=== PATIENT | female | born 1935 | race Caucasian/White ===

== ENCOUNTER 2017-01-24 09:53 | Outpatient (CLI) | payer MEDICARE, OTHER ==
[2017-01-24 18:33] LABS: BASOPHILS % (AUTO) 0.6 %; EOSINOPHILS # (AUTO) 0.2 10^3/uL (0.0-0.7); EOSINOPHILS % (AUTO) 2.2 %; HCT - HEMATOCRIT 39.8 % (37.0-47.0); HGB - HEMOGLOBIN 13.1 g/dL (12.0-16.0); LYMPHOCYTES # (AUTO) 2.3 10^3/uL (1.5-3.5); LYMPHOCYTES % (AUTO) 29.8 %; MEAN CORPUSCULAR HEMOGLOBIN 30.8 pg (27.0-31.0); MEAN CORPUSCULAR VOLUME 93.4 fL (81.0-99.0); MEAN PLATELET VOLUME 8.6 fL (7.9-10.8); MONOCYTES # (AUTO) 0.6 10^3/uL (0.0-1.0); MONOCYTES % (AUTO) 8.1 %; NEUTROPHILS # (AUTO) 4.7 10^3/uL (1.5-6.6); NEUTROPHILS % (AUTO) 59.3 %; RED BLOOD COUNT 4.26 10^6/uL (4.20-5.40); RED CELL DISTRIBUTION WIDTH 14.6 % (12.0-15.0); UNCORRECTED WHITE BLOOD COUNT 7.9 x10^3/uL; WHITE BLOOD COUNT 7.9 x10^3/uL (4.8-10.8)
[2017-01-24 18:56] LABS: ALBUMIN/GLOBULIN RATIO 1.1 (1.0-2.2); BILIRUBIN,TOTAL 0.8 mg/dL (0.2-1.0); BUN - BLOOD UREA NITROGEN 19 mg/dL (6-20); CALCIUM 9.7 mg/dL (8.5-10.3); CARBON DIOXIDE - CO2 23 mmol/L (21-32); CHLORIDE 106 mmol/L (101-111); CHOL/HDL RATIO 4.7 (<4.4); CHOLESTEROL 261 mg/dL; CREATININE 0.8 mg/dL (0.4-1.0); GFR - MDRD 69 (>89); GLUCOSE 89 mg/dL (70-100); HDL CHOLESTEROL 56 mg/dL; LDL/HDL RATIO 3.4 (<4.4); POTASSIUM 3.6 mmol/L (3.5-5.0); SODIUM 138 mmol/L (135-145); TOTAL PROTEIN 7.7 g/dL (6.7-8.2); TRIGLYCERIDES 72 mg/dL; VLDL CHOLESTEROL 14 mg/dL
[2017-01-24 19:23] LABS: THYROID STIMULATING HORMONE < 0.08 uIU/mL (0.34-5.60)
== END 2017-01-24 09:54 | disposition home or self-care (01) ==
LOC: LAB.F 09:53
PROVIDERS: ATTEND Physician Assistant Medical
DX: I10 Essential (primary) hypertension (principal); E55.9 Vitamin D deficiency, unspecified; E78.5 Hyperlipidemia, unspecified; E03.9 Hypothyroidism, unspecified
CPT/HCPCS: 36415; 80053; 80061; 82306; 84439; 84443; 85025

== ENCOUNTER 2017-01-30 09:46 | Outpatient (CLI) | payer MEDICARE, OTHER ==
[2017-01-30 18:59] LABS: THYROID STIMULATING HORMONE < 0.08 uIU/mL (0.34-5.60)
== END 2017-01-30 09:47 | disposition home or self-care (01) ==
LOC: LAB.F 09:46
PROVIDERS: ATTEND Physician Assistant Medical
DX: R89.9 Unspecified abnormal finding in specimens from other organs, systems and tissues (principal); E03.9 Hypothyroidism, unspecified
CPT/HCPCS: 36415; 84146; 84439; 84443; 84481

== ENCOUNTER 2017-02-01 11:01 | Outpatient (CLI) | payer MEDICARE, OTHER | END 2017-02-01 11:02 | disposition home or self-care (01) | LOC: DI 11:01 | PROVIDERS: ATTEND Physician Assistant Medical | DX: R01.1 Cardiac murmur, unspecified (principal); I70.0 Atherosclerosis of aorta | CPT/HCPCS: 93306 ==

== ENCOUNTER 2017-02-05 08:37 | Outpatient (CLI) | payer MEDICARE, OTHER ==
[2017-02-09 16:31] LABS: TEST RESULT REPORT (())
== END 2017-02-05 08:38 | disposition home or self-care (01) ==
LOC: LAB.F 08:37
PROVIDERS: ATTEND Physician Assistant Medical
DX: E23.0 Hypopituitarism (principal)
CPT/HCPCS: 36415; 81599; 83519

== ENCOUNTER 2017-02-19 08:31 | Outpatient (CLI) | payer MEDICARE, OTHER ==
--- NOTE | 2017-02-20 14:03 | DEXA Report ---
DEXA SCAN: 02/19/2017 CLINICAL INDICATION: Postmenopausal. TECHNIQUE: Dual energy x-ray absorptiometry (DXA) was performed on a [employer] system. Regions measured are the AP spine, femoral neck, and, if needed, forearm. COMPARISON: None. In accordance with the International Society for Clinical Densitometry (ISCD) guidelines, data from previous exams may be reanalyzed using current recommendations and techniques. This is done to allow a more accurate basis for comparison with the current study. FINDINGS The data for the lumbar spine is as follows: REGION BMD (g/cm/cm) T-SCORE Z-SCORE L1 1.172 0.4 2.0 L2 1.234 0.3 1.9 L3 1.304 0.9 2.5 L4 1.176 -0.2 1.4 TOTAL 1.227 0.4 2.0 NOTE: All evaluable vertebrae are used for classification. The data for the hip is as follows: REGION BMD (g/cm/cm) T-SCORE Z-SCORE Neck 0.819 -1.6 0.5 TOTAL 0.852 -1.2 0.7 NOTE: The femoral neck or total proximal femur, whichever is lowest, is used for classification. IMPRESSION: THE WHO CLASSIFICATION BASED ON THE INTERNATIONAL REFERENCE STANDARD IS OSTEOPENIA. THE FRACTURE RISK IS INCREASED. RECOMMENDATION: Patients with diagnosis of osteoporosis or osteopenia should have regular bone mineral density assessment. For those eligible for Medicare, routine testing is allowed once every 2 years. Testing frequency can be increased for patients who have rapidly progressing disease or for those who are receiving medical therapy to restore bone mass. COMMENT: World Health Organization (WHO) definitions for osteoporosis and osteopenia: NORMAL BMD: T-score at -1.0 or higher, fracture risk is low. OSTEOPENIA BMD: T-score between -1.0 and -2.5, fracture risk is increased. OSTEOPOROSIS BMD: T-score at -2.5 or lower, fracture risk high. National Osteoporosis Foundation recommends: 1. Obtain adequate dietary calcium (at least 1200 mg per day) and vitamin D (400 -800 international units per day). 2. Participate, as appropriate, in regular weightbearing and muscle- strengthening exercise. 3. Avoid tobacco use and reduce alcohol and caffeine intake. 4. For more detailed information see the website at www.NOF.org. MTDD
== END 2017-02-19 08:32 | disposition home or self-care (01) ==
LOC: DI 08:31
PROVIDERS: ATTEND Physician Assistant Medical
DX: Z13.820 Encounter for screening for osteoporosis (principal); M85.88 Other specified disorders of bone density and structure, other site
CPT/HCPCS: 77080

== ENCOUNTER 2017-02-19 08:32 | Outpatient (CLI) | payer MEDICARE, OTHER ==
--- NOTE | 2017-02-28 16:35 | Mammography Report ---
DIGITAL SCREENING MAMMOGRAM: 02/19/2017 CLINICAL INDICATION: An 81-year-old with family history of breast cancer, for screening. COMPARISON: 08/2011, 08/2010, 07/2008, 02/2007, 11/1999 from [place], [place]. TECHNIQUE: Routine CC and MLO projections were obtained of the breasts. FINDINGS: Scattered fibroglandular tissue is present within the breasts. There are no dominant haroon s, suspicious microcalcifications, or secondary signs of malignancy. In comparison to the previous st udies, there are no significant changes. ASSESSMENT: NO MAMMOGRAPHIC EVIDENCE OF MALIGNANCY. NO SIGNIFICANT INTERVAL CHANGES. RECOMMENDATION: Screening mammography is recommended annually. BIRADS category 1 - negative. STANDARD QUALIFYING STATEMENTS 1. This examination was reviewed with the aid of Computed-Aided Detection (CAD). 2. A negative or benign imaging report should not delay biopsy if clinically suspicious findings are present. Consider surgical consultation if warranted. More than 5% of cancers are not identified by i maging. 3. Dense breasts may obscure an underlying neoplasm. 15:9:05 JOB #: [id number] EXT JOB #:[id number]
== END 2017-02-19 08:33 | disposition home or self-care (01) ==
LOC: DI 08:32
PROVIDERS: ATTEND Physician Assistant Medical
DX: Z12.31 Encounter for screening mammogram for malignant neoplasm of breast (principal); Z80.3 Family history of malignant neoplasm of breast
CPT/HCPCS: 77067

== ENCOUNTER 2017-11-02 10:15 | Outpatient (CLI) | payer MEDICARE, OTHER ==
[2017-11-02 17:34] LABS: BASOPHILS # (AUTO) 0.1 10^3/uL (0.0-0.1); BASOPHILS % (AUTO) 0.9 %; EOSINOPHILS # (AUTO) 0.2 10^3/uL (0.0-0.7); EOSINOPHILS % (AUTO) 2.1 %; HGB - HEMOGLOBIN 13.3 g/dL (12.0-16.0); LYMPHOCYTES # (AUTO) 2.1 10^3/uL (1.5-3.5); LYMPHOCYTES % (AUTO) 28.9 %; MEAN CORPUSCULAR HEMOGLOBIN 31.7 pg (27.0-31.0); MEAN CORPUSCULAR HGB CONC 32.4 g/dL (32.0-36.0); MEAN PLATELET VOLUME 8.7 fL (7.9-10.8); MONOCYTES # (AUTO) 0.6 10^3/uL (0.0-1.0); MONOCYTES % (AUTO) 8.3 %; NEUTROPHILS # (AUTO) 4.3 10^3/uL (1.5-6.6); NEUTROPHILS % (AUTO) 59.8 %; PLT - PLATELET COUNT 336 10^3/uL (130-450); RED BLOOD COUNT 4.19 10^6/uL (4.20-5.40); WHITE BLOOD COUNT 7.2 x10^3/uL (4.8-10.8)
[2017-11-02 18:19] LABS: ALBUMIN 3.7 g/dL (3.2-5.5); ALKALINE PHOSPHATASE 50 IU/L (42-121); ALT ALANINE AMINOTRANSFERASE 16 IU/L (10-60); AST ASPARTATE AMINOTRANSFERASE 20 IU/L (10-42); BILIRUBIN,TOTAL 0.7 mg/dL (0.2-1.0); BUN - BLOOD UREA NITROGEN 21 mg/dL (6-20); CALCIUM 9.4 mg/dL (8.5-10.3); CARBON DIOXIDE - CO2 24 mmol/L (21-32); CHLORIDE 104 mmol/L (101-111); CHOL/HDL RATIO 3.6 (<4.4); CHOLESTEROL 250 mg/dL; CREATININE 0.7 mg/dL (0.4-1.0); GFR - MDRD 80 (>89); GLUCOSE 93 mg/dL (70-100); HDL CHOLESTEROL 70 mg/dL; LDL CHOLESTEROL,CALCULATED 164 mg/dL; LDL/HDL RATIO 2.3 (<4.4); SODIUM 137 mmol/L (135-145); TOTAL PROTEIN 7.3 g/dL (6.7-8.2); VLDL CHOLESTEROL 16 mg/dL
== END 2017-11-02 10:16 | disposition home or self-care (01) ==
LOC: LAB.F 10:15
PROVIDERS: ATTEND Physician Assistant Medical
DX: E78.5 Hyperlipidemia, unspecified (principal); E55.9 Vitamin D deficiency, unspecified; Z51.81 Encounter for therapeutic drug level monitoring; Z79.899 Other long term (current) drug therapy; E23.0 Hypopituitarism; E03.9 Hypothyroidism, unspecified
CPT/HCPCS: 36415; 80053; 80061; 82306; 83721; 84443; 85025

== ENCOUNTER 2017-11-19 09:59 | Outpatient (CLI) | payer MEDICARE, OTHER | END 2017-11-19 10:00 | disposition home or self-care (01) | LOC: LAB.F 09:59 | PROVIDERS: ATTEND Physician Assistant Medical | DX: E23.0 Hypopituitarism (principal); E03.9 Hypothyroidism, unspecified | CPT/HCPCS: 36415; 84443 ==

== ENCOUNTER 2017-12-25 09:30 | Outpatient (CLI) | payer MEDICARE, OTHER ==
[2017-12-25 18:23] LABS: THYROID STIMULATING HORMONE < 0.08 uIU/mL (0.34-5.60)
[2017-12-25 18:25] LABS: FREE T4 (FREE THYROXINE) 1.92 ng/dL (0.58-1.64)
== END 2017-12-25 09:31 | disposition home or self-care (01) ==
LOC: LAB.F 09:30
PROVIDERS: ATTEND Physician Assistant Medical
DX: E23.0 Hypopituitarism (principal); E03.9 Hypothyroidism, unspecified
CPT/HCPCS: 36415; 84439; 84443; 84481

== ENCOUNTER 2018-02-28 07:07 | Outpatient (CLI) | payer MEDICARE, OTHER ==
[2018-02-28 13:08] LABS: CHOL/HDL RATIO 2.5 (<4.4); CHOLESTEROL 181 mg/dL; HDL CHOLESTEROL 71 mg/dL; LDL CHOLESTEROL,CALCULATED 94 mg/dL; LDL/HDL RATIO 1.3 (<4.4); VLDL CHOLESTEROL 16 mg/dL
[2018-02-28 13:20] LABS: THYROID STIMULATING HORMONE 0.12 uIU/mL (0.34-5.60)
[2018-02-28 13:22] LABS: FREE T4 (FREE THYROXINE) 1.33 ng/dL (0.58-1.64)
[2018-02-28 13:24] LABS: TOTAL T3 0.84 ng/mL (0.87-1.78)
== END 2018-02-28 07:08 | disposition home or self-care (01) ==
LOC: LAB.F 07:07
PROVIDERS: ATTEND Physician Assistant Medical
DX: E78.5 Hyperlipidemia, unspecified (principal); E23.0 Hypopituitarism
CPT/HCPCS: 36415; 80061; 83721; 84439; 84443; 84480; 84481

== ENCOUNTER 2018-05-20 07:32 | Outpatient (CLI) | payer MEDICARE, OTHER ==
[2018-05-20 10:48] LABS: ALBUMIN/GLOBULIN RATIO 1.3 (1.0-2.2); ALKALINE PHOSPHATASE 47 IU/L (42-121); ALT ALANINE AMINOTRANSFERASE 15 IU/L (10-60); AST ASPARTATE AMINOTRANSFERASE 19 IU/L (10-42); BILIRUBIN,TOTAL 0.8 mg/dL (0.2-1.0); BUN - BLOOD UREA NITROGEN 21 mg/dL (6-20); CALCIUM 9.9 mg/dL (8.5-10.3); CARBON DIOXIDE - CO2 24 mmol/L (21-32); CHLORIDE 98 mmol/L (101-111); CREATININE 0.8 mg/dL (0.4-1.0); GFR - MDRD 69 (>89); GLUCOSE 93 mg/dL (70-100); SODIUM 130 mmol/L (135-145); TOTAL PROTEIN 7.2 g/dL (6.7-8.2)
== END 2018-05-20 07:33 | disposition home or self-care (01) ==
LOC: LAB.F 07:32
PROVIDERS: ATTEND Physician Assistant Medical
DX: E03.9 Hypothyroidism, unspecified (principal); E78.5 Hyperlipidemia, unspecified; E23.0 Hypopituitarism
CPT/HCPCS: 36415; 80053; 84443; 84481

== ENCOUNTER 2019-01-14 07:25 | Outpatient (CLI) | payer MEDICARE, OTHER | END 2019-01-14 07:26 | disposition home or self-care (01) | LOC: LAB.S 07:25 | PROVIDERS: ATTEND Physician Assistant Medical | DX: E03.9 Hypothyroidism, unspecified (principal) | CPT/HCPCS: 36415; 84443 ==

== ENCOUNTER 2019-05-08 07:38 | Outpatient (CLI) | payer MEDICARE, OTHER ==
[2019-05-08 10:15] LABS: BASOPHILS # (AUTO) 0.1 10^3/uL (0.0-0.1); BASOPHILS % (AUTO) 1.1 %; EOSINOPHILS # (AUTO) 0.3 10^3/uL (0.0-0.7); EOSINOPHILS % (AUTO) 3.4 %; HGB - HEMOGLOBIN 11.8 g/dL (12.0-16.0); LYMPHOCYTES # (AUTO) 1.9 10^3/uL (1.5-3.5); LYMPHOCYTES % (AUTO) 25.3 %; MEAN CORPUSCULAR HEMOGLOBIN 32.2 pg (27.0-31.0); MEAN CORPUSCULAR HGB CONC 32.3 g/dL (32.0-36.0); MEAN CORPUSCULAR VOLUME 99.5 fL (81.0-99.0); MEAN PLATELET VOLUME 10.1 fL (7.9-10.8); MONOCYTES # (AUTO) 0.8 10^3/uL (0.0-1.0); NEUTROPHILS # (AUTO) 4.3 10^3/uL (1.5-6.6); NEUTROPHILS % (AUTO) 58.9 %; PLT - PLATELET COUNT 350 10^3/uL (130-450); RED BLOOD COUNT 3.67 10^6/uL (4.20-5.40); RED CELL DISTRIBUTION WIDTH 13.2 % (12.0-15.0); WHITE BLOOD COUNT 7.3 x10^3/uL (4.8-10.8)
[2019-05-08 10:26] LABS: ALBUMIN 3.8 g/dL (3.2-5.5); ALBUMIN/GLOBULIN RATIO 1.1 (1.0-2.2); ALKALINE PHOSPHATASE 49 IU/L (42-121); ALT ALANINE AMINOTRANSFERASE 16 IU/L (10-60); AST ASPARTATE AMINOTRANSFERASE 22 IU/L (10-42); BILIRUBIN,TOTAL 0.5 mg/dL (0.2-1.0); BUN - BLOOD UREA NITROGEN 22 mg/dL (6-20); CALCIUM 9.9 mg/dL (8.5-10.3); CARBON DIOXIDE - CO2 28 mmol/L (21-32); CHLORIDE 100 mmol/L (101-111); CHOL/HDL RATIO 2.2 (<4.4); CHOLESTEROL 169 mg/dL; CREATININE 0.9 mg/dL (0.4-1.0); GFR - MDRD 60 (>89); GLUCOSE 99 mg/dL (70-100); HDL CHOLESTEROL 77 mg/dL; LDL CHOLESTEROL,CALCULATED 82 mg/dL; LDL/HDL RATIO 1.1 (<4.4); SODIUM 137 mmol/L (135-145); TOTAL PROTEIN 7.2 g/dL (6.7-8.2); VLDL CHOLESTEROL 10 mg/dL
== END 2019-05-08 07:39 | disposition home or self-care (01) ==
LOC: LAB.S 07:38
PROVIDERS: ATTEND Physician Assistant Medical
DX: I10 Essential (primary) hypertension (principal); E78.5 Hyperlipidemia, unspecified
CPT/HCPCS: 36415; 80053; 80061; 83721; 84443; 85025

== ENCOUNTER 2019-05-22 08:00 | Outpatient (CLI) | payer MEDICARE, OTHER | END 2019-05-22 23:59 | disposition home or self-care (01) | LOC: LAB.R 08:00 | PROVIDERS: ATTEND Physician Assistant Medical | DX: Z00.00 Encounter for general adult medical examination without abnormal findings (principal) | CPT/HCPCS: 82274 ==

== ENCOUNTER 2019-06-09 10:22 | Outpatient (CLI) | payer MEDICARE, OTHER | END 2019-06-09 10:23 | disposition home or self-care (01) | LOC: RT 10:22 | PROVIDERS: ATTEND Internal Medicine Gastroenterology | DX: I10 Essential (primary) hypertension (principal) | CPT/HCPCS: 93005 ==

== ENCOUNTER 2019-06-16 10:00 | Day surgery (SDC) | payer MEDICARE, OTHER ==
[2019-06-16] MEDS ORDERED: MIDAZOLAM 2 MG/2 ML VIAL IVP ONE (10:01)
[2019-06-16] MEDS ORDERED: fentaNYL 100 MCG/2 ML VIAL IVP ONE (10:01)
[2019-06-16] MEDS ORDERED: LACTATED RINGERS 1,000 ML IV ONE (10:12)
[2019-06-16 14:20] VITALS: BP 132/69
== END 2019-06-16 10:01 | disposition home or self-care (01) ==
LOC: SDS 10:00
PROVIDERS: ATTEND Internal Medicine Gastroenterology
PROC: 0DJD8ZZ Inspection of Lower Intestinal Tract, Via Natural or Artificial Opening Endoscopic (ICD-10-PCS; principal; 2019-06-16 11:45)
DX: K57.31 Diverticulosis of large intestine without perforation or abscess with bleeding (principal); I10 Essential (primary) hypertension; Z79.899 Other long term (current) drug therapy; Z80.3 Family history of malignant neoplasm of breast; Z77.22 Contact with and (suspected) exposure to environmental tobacco smoke (acute) (chronic)
CPT/HCPCS: 45378; J7120

== ENCOUNTER 2020-05-10 08:52 | Outpatient (CLI) | payer MEDICARE, OTHER ==
[2020-05-10 15:33] LABS: BASOPHILS # (AUTO) 0.1 10^3/uL (0.0-0.1); BASOPHILS % (AUTO) 1.1 %; EOSINOPHILS # (AUTO) 0.2 10^3/uL (0.0-0.7); EOSINOPHILS % (AUTO) 3.2 %; HGB - HEMOGLOBIN 12.8 g/dL (12.0-16.0); LYMPHOCYTES # (AUTO) 2.1 10^3/uL (1.5-3.5); LYMPHOCYTES % (AUTO) 32.4 %; MEAN CORPUSCULAR HEMOGLOBIN 31.2 pg (27.0-31.0); MEAN CORPUSCULAR HGB CONC 31.8 g/dL (32.0-36.0); MEAN CORPUSCULAR VOLUME 98.3 fL (81.0-99.0); MEAN PLATELET VOLUME 10.5 fL (7.9-10.8); MONOCYTES # (AUTO) 0.6 10^3/uL (0.0-1.0); MONOCYTES % (AUTO) 9.1 %; NEUTROPHILS # (AUTO) 3.6 10^3/uL (1.5-6.6); NEUTROPHILS % (AUTO) 53.9 %; PLT - PLATELET COUNT 366 10^3/uL (130-450); RED CELL DISTRIBUTION WIDTH 13.9 % (12.0-15.0); WHITE BLOOD COUNT 6.6 x10^3/uL (4.8-10.8)
[2020-05-10 15:42] LABS: ALBUMIN/GLOBULIN RATIO 1.1 (1.0-2.2); ALKALINE PHOSPHATASE 65 IU/L (42-121); ALT ALANINE AMINOTRANSFERASE 18 IU/L (10-60); AST ASPARTATE AMINOTRANSFERASE 21 IU/L (10-42); BILIRUBIN,TOTAL 0.6 mg/dL (0.2-1.0); BUN - BLOOD UREA NITROGEN 32 mg/dL (6-20); CALCIUM 10.2 mg/dL (8.5-10.3); CARBON DIOXIDE - CO2 26 mmol/L (21-32); CHLORIDE 100 mmol/L (101-111); CHOL/HDL RATIO 2.6 (<4.4); CHOLESTEROL 176 mg/dL; GLUCOSE 99 mg/dL (70-100); HDL CHOLESTEROL 67 mg/dL; LDL CHOLESTEROL,CALCULATED 94 mg/dL; LDL/HDL RATIO 1.4 (<4.4); SODIUM 136 mmol/L (135-145); TOTAL PROTEIN 7.8 g/dL (6.7-8.2); VLDL CHOLESTEROL 15 mg/dL
== END 2020-05-10 08:53 | disposition home or self-care (01) ==
LOC: LAB.S 08:52
PROVIDERS: ATTEND Physician Assistant
DX: Z00.00 Encounter for general adult medical examination without abnormal findings (principal); E78.5 Hyperlipidemia, unspecified; E03.9 Hypothyroidism, unspecified; I10 Essential (primary) hypertension
CPT/HCPCS: 36415; 80053; 80061; 83721; 84443; 85025

== ENCOUNTER 2020-11-23 16:40 | Outpatient (CLI) | payer MEDICARE, OTHER ==
--- NOTE | 2020-11-23 17:09 | XRAY Report ---
PROCEDURE: Hip w/Pelvis 2-3V LT INDICATIONS: HIP JOINT PX LT TECHNIQUE: AP pelvis with lateral view(s) of the bilateral hip(s). COMPARISON: None. FINDINGS: Bones: No fractures or dislocations. Pelvic ring appears intact. No suspicious bony lesions. Righ t hip arthroplasty is present. There is moderate to severe left hip arthritic narrowing. No erosions. Soft tissues: The visualized bowel gas pattern is normal. No suspicious soft tissue calcifications. Tubing is noted overlying the pelvis likely related to peritoneal dialysis. IMPRESSION: Prominent left hip arthritis. Reviewed by: Shana Huertas MD on 11/23/2020 5:07 PM PDT Approved by: Shana Huertas MD on 11/23/2020 5:07 PM PDT Station ID: [id number]
== END 2020-11-23 16:41 | disposition home or self-care (01) ==
LOC: DI.S 16:40
PROVIDERS: ATTEND Physician Assistant
DX: M16.12 Unilateral primary osteoarthritis, left hip (principal)

== ENCOUNTER 2021-01-25 08:52 | Outpatient (CLI) | payer MEDICARE, OTHER ==
--- NOTE | 2021-01-25 09:41 | CARDIAC PROCEDURE NOTE ---
Stress Test Report Service Date: 01/25/21 Service Time: 09:00 Ordering Provider: Mukesh Delgado MD Indication for Test: Pre-operative assessment prior to planned hip replacement surgery. Significant Medical History: -Marcy is a delightful 85 yr old woman with history of hypertension and hyperlipidemia, with progressive left hip arthritis, for which total hip replacement is being planned. Over the past several months her daily walking has declined, though she is still able to walk to/from a dining facility located about 1/2 mile away, a trip that takes her about [address] She denies specific exertional cardiovascular symptoms, such as chest discomfort, significant dyspnea, palpitations and lightheadedness. -In January,, she was evaluated for a systolic murmur, with an echocardiogram that revealed normal left ventricular size, wall thickness and systolic function; a trileaflet aortic valve demonstrated mild stenosis, with peak/mean gradients of 24 mmHg/10 mmHg, with valve area 1.95 cm2 by the continuity equation. -Current cardiovascular meds include lisinopril 20 mg/HCTZ 12.5 mg, amlodipine 5 mg and atorvastatin 20 mg daily; she took her BP meds this AM prior to coming in for the study. Cardiac Risk Factors: Positive for hypertension (treated >20 yrs), hyperlipidemia on atorvastatin and for family history of CAD in her father's family (in elder years); she has no significant smoking history and no history of diabetes. Type of Stress Test: ETT with Echocardiography Procedure: -Exercise Treadmill Test- After signing informed consent, baseline echo images were obtained, with special attention to her aortic valve, which demonstrated progression in stenosis from last study 4 years ago, with calculated valve area of 1.32 cm2. The patient then performed treadmill exercise using a Modified Eitan protocol. The patient exercised for 3 minutes 21 seconds and achieved a peak heart rate of 126 (92 percent predicted maximum heart rate for age), and an estimated workload of 2.5 METS. The test was terminated due to fatigue/shortness of breath, after patient achieved her target heart rate, with a 2.5-fold increase in rate-pressure (HR x SBP) product. Resting heart rate: 72 Peak heart rate: 126 Normal response to exercise. Resting BP: 142/68 Peak BP: 212/80 Normal to mildly hypertensive BP response to exercise. Rhythm during exercise: Sinus rhythm throughout, with rare isolated monoform PVCs. Symptoms: No specific cardiovascular symptoms; left hip pain was not limiting. EKG at rest showed normal sinus rhythm, with right bundle branch block and occasional isolated monoform PVCs. EKG at peak stress showed no ischemia by EKG criteria. In Recovery heart rate rapidly decreased, with return of BP to baseline by 5 minutes. Elver Rollins MD, was present throughout this treadmill exercise test and supervised it in all aspects. Echo imaging performed at rest and with stress will be reported separately. Summary: 1) Limited exercise tolerance as evidenced by achievement of only 2.5 METS; no DIANA available for modified Eitan protocol. 2) Abnormal resting EKG (right bundle branch block). 3) Adequate level of exercise was achieved on this treadmill stress test. 4) Normal to mildly hypertensive BP response to exercise. 5) No ischemic changes by EKG criteria were seen at peak stress. 6) Echo image interpretation revealed: normal left ventricular size and systolic function, with normal range ejection fraction; no echo evidence of prior infarct or stress associated ischemia; aortic valve area (BLAIR) consistent with moderate aortic stenosis, with V-max 3.1 m/sec, and indexed BLAIR 0.75 cm/m. See separate echo report for more detail. CONCLUSIONS: 1. No evidence of inducible ischemia, at relatively low level of exertion that nonetheless probably represents an adequate level of hemodynamic stress. 2. Valvular aortic stenosis, that has progressed from mild to moderate over 4- year interval. 3. With these reassuring results patient can proceed with hip replacement surgery, with risk that is likely average for age. 4. Recommend repeat resting diagnostic echocardiogram in one year, or sooner if patient develops exertional chest discomfort, dyspnea or lightheadedness.
== END 2021-01-25 08:53 | disposition home or self-care (01) ==
LOC: DI 08:52
PROVIDERS: ATTEND Internal Medicine
DX: Z01.818 Encounter for other preprocedural examination (principal); M25.552 Pain in left hip; I35.0 Nonrheumatic aortic (valve) stenosis; R01.1 Cardiac murmur, unspecified; E78.5 Hyperlipidemia, unspecified; Z82.49 Family history of ischemic heart disease and other diseases of the circulatory system; I45.10 Unspecified right bundle-branch block
CPT/HCPCS: 93350

== ENCOUNTER 2021-02-07 09:31 | Outpatient (CLI) | payer MEDICARE, OTHER ==
[2021-02-07 15:17] LABS: ALBUMIN 4.1 g/dL (3.2-5.5); ALBUMIN/GLOBULIN RATIO 1.2 (1.0-2.2); BILIRUBIN,TOTAL 0.7 mg/dL (0.2-1.0); CALCIUM 10.2 mg/dL (8.5-10.3); CREATININE 0.9 mg/dL (0.4-1.0); POTASSIUM 4.1 mmol/L (3.5-5.0); TOTAL PROTEIN 7.6 g/dL (6.7-8.2)
== END 2021-02-07 09:32 | disposition home or self-care (01) ==
LOC: LAB.S 09:31
PROVIDERS: ATTEND Internal Medicine
DX: Z01.812 Encounter for preprocedural laboratory examination (principal)
CPT/HCPCS: 36415; 80053; 85025

== ENCOUNTER 2021-02-11 08:52 | Outpatient (CLI) | payer MEDICARE, OTHER ==
[2021-02-11 14:32] LABS: BASOPHILS # (AUTO) 0.1 10^3/uL (0.0-0.1); EOSINOPHILS # (AUTO) 0.2 10^3/uL (0.0-0.7); EOSINOPHILS % (AUTO) 2.7 %; HCT - HEMATOCRIT 38.7 % (37.0-47.0); HGB - HEMOGLOBIN 12.6 g/dL (12.0-16.0); LYMPHOCYTES # (AUTO) 1.8 10^3/uL (1.5-3.5); LYMPHOCYTES % (AUTO) 27.1 %; MEAN CORPUSCULAR HEMOGLOBIN 32.4 pg (27.0-31.0); MEAN CORPUSCULAR HGB CONC 32.6 g/dL (32.0-36.0); MEAN CORPUSCULAR VOLUME 99.5 fL (81.0-99.0); MONOCYTES # (AUTO) 0.7 10^3/uL (0.0-1.0); NEUTROPHILS % (AUTO) 58.9 %; PLT - PLATELET COUNT 361 10^3/uL (130-450); RED BLOOD COUNT 3.89 10^6/uL (4.20-5.40); RED CELL DISTRIBUTION WIDTH 13.6 % (12.0-15.0); WHITE BLOOD COUNT 6.8 x10^3/uL (4.8-10.8)
[2021-02-11 21:27] LABS: ESTIMATED AVERAGE GLUCOSE 108 mg/dL (70-100); HEMOGLOBIN A1c% 5.4 % (4.27-6.07)
== END 2021-02-11 08:53 | disposition home or self-care (01) ==
LOC: LAB.S 08:52
PROVIDERS: ATTEND Internal Medicine
DX: Z01.812 Encounter for preprocedural laboratory examination (principal)
CPT/HCPCS: 36415; 83036; 85025

== ENCOUNTER 2021-03-23 06:06 | Day surgery (SDC) | payer MEDICARE, OTHER ==
[2021-03-23] MEDS ORDERED: CELECOXIB 100 MG CAPSULE PO ONE (06:16)
[2021-03-23] MEDS ORDERED: ACETAMINOPHEN 500 MG TABLET PO ONE (06:16)
[2021-03-23] MEDS ORDERED: DEXAMETHASONE 10 MG/ML VIAL ONE (06:17)
[2021-03-23] MEDS ORDERED: CEFAZOLIN SODIUM IN 0.9 % NACL 2 GM/100 ML BAG IV ONE (06:17)
[2021-03-23] MEDS ORDERED: LACTATED RINGERS 1,000 ML IV ONE ×2 (06:22→10:37)
[2021-03-23] MEDS ORDERED: BUPIVACAINE 0.25% PF 30 ML VIAL ONE (06:56)
[2021-03-23] MEDS ORDERED: VANCOMYCIN 1 GM VIAL ONE (06:56)
[2021-03-23] MEDS ORDERED: oxyCODONE 5 MG TABLET PO PRN (07:12)
[2021-03-23] MEDS ORDERED: ONDANSETRON 4 MG/2 ML VIAL IVP PRN ×2 (07:12→07:21)
[2021-03-23] MEDS ORDERED: DOCUSATE SODIUM 100 MG CAPSULE PO PRN (07:12)
[2021-03-23] MEDS ORDERED: SODIUM CHLORIDE FLUSH 0.9% 10 ML SYRINGE IVP PRN (07:12)
--- NOTE | 2021-03-23 07:19 | ANESTHESIA ---
Pre-Anesthesia VS, & Labs - Diagnosis osteoporosis - Procedure left hip total arthroplasty Vital Signs: Temp Pulse Resp BP Pulse Ox 36.4 C L 69 16 127/46 L 99 03/23/21 06:55 03/23/21 06:55 03/23/21 06:55 03/23/21 06:55 03/23/21 06:55 Height: 5 ft 2 in Weight (kg): 74.6 kg Body Mass Index: 30.0 BMI Classification: Obese - NPO >8 hours - Is Patient ?: No - Lab Results Current Lab Results: Laboratory Tests 03/23/21 06:48: POC Whole Bld Glucose 90 Home Medications and Allergies Home Medications: Ambulatory Orders Calcium Carbonate/Vitamin D3 [Calcium 500 mg-Vit D3 600 Unit] 3 each PO DAILY 03/16/21 Gabapentin [Neurontin] 100 mg PO QPM 03/16/21 Lisinopril/Hydrochlorothiazide [Zestoretic 20-12.5 mg Tablet] 1 each PO DAILY 03/16/21 Meloxicam [Mobic] 1 tablet PO DAILY 03/16/21 Multivit-Min/Iron/Folic/Xqt892 [Hair, Skin and Nails Tablet] 1 each PO DAILY 03/16/21 Multivitamin/Iron/Folic Acid [Centrum Adults Tablet] 1 each PO DAILY 03/16/21 Vit A/Vit C/Vit E/Zinc/Copper [Preservision Areds Softgel] 1 each PO BID 03/16/21 amLODIPine [Norvasc] 5 mg PO DAILY 03/16/21 Atorvastatin Calcium 20 mg PO QPM 06/13/19 Levothyroxine [Synthroid] 75 mcg PO QDAC 06/13/19 Calcium Carbonate/Vitamin D3 [Calcium 500 mg-Vit D3 600 Unit] 3 each PO DAILY 03/16/21 Gabapentin [Neurontin] 100 mg PO QPM 03/16/21 Lisinopril/Hydrochlorothiazide [Zestoretic 20-12.5 mg Tablet] 1 each PO DAILY 03/16/21 Meloxicam [Mobic] 1 tablet PO DAILY 03/16/21 Multivit-Min/Iron/Folic/Fdk962 [Hair, Skin and Nails Tablet] 1 each PO DAILY 03/16/21 Multivitamin/Iron/Folic Acid [Centrum Adults Tablet] 1 each PO DAILY 03/16/21 Vit A/Vit C/Vit E/Zinc/Copper [Preservision Areds Softgel] 1 each PO BID 03/16/21 amLODIPine [Norvasc] 5 mg PO DAILY 03/16/21 Allergies/Adverse Reactions: Allergies Allergy/AdvReac Type Severity Reaction Status Date / Time Sulfa (Sulfonamide Allergy Mild Emesis Verified 06/13/19 13:02 Antibiotics) Anes History & Medical History - Anesthetic History Anesthesia Complications: reports: No previous complications - Medical History Cardiovascular: reports: Hypertension, High cholesterol, Murmur (moderate , see echo) Pulmonary: reports: None Gastrointestinal: reports: None Urinary: reports: None Musculoskeletal: reports: Osteoarthritis Endocrine/Autoimmune: reports: HyPOthyroidism Skin: reports: None Smoking Status: Never smoker History of Cancer?: No - Surgical History General: reports: Cholecystectomy, Colonoscopy Eyes Ears Nose Throat (EENT): reports: Cataracts, Tonsil/Adenoidectomy Neurologic: reports: Other Orthopedic: reports: Hip replacement Exam General: Alert, Oriented x3 Dental: WNL Mouth Opening: Greater than 4 Fingerbreadths Neck Mobility: Normal Mallampati classification: II Thyromental Distance: greater than 6 cm Plan Anesthesia Type: General, Fascia Iliaca Block Consent for Procedure(s) Verified and Reviewed: Yes Code Status: Attempt Resuscitation ASA classification: 2-Mild systemic disease Is this case an emergency?: No
[2021-03-23] MEDS ORDERED: ePHEDrine 50 MG/ML VIAL IVP PRN (07:21)
[2021-03-23] MEDS ORDERED: ATROPINE ABBOJECT 1 MG/10 ML SYRINGE IVP PRN (07:21)
[2021-03-23] MEDS ORDERED: NALOXONE 0.4 MG/ML VIAL IVP PRN (07:21)
[2021-03-23] MEDS ORDERED: HYDROmorphone 0.5 MG/0.5 ML SYRINGE IVP PRN (07:21)
[2021-03-23] MEDS ORDERED: MORPHINE 2 MG/ML CARPUJECT IVP PRN (07:21)
[2021-03-23] MEDS ORDERED: METOCLOPRAMIDE 10 MG/2 ML VIAL IVP PRN (07:21)
[2021-03-23] MEDS ORDERED: DEXAMETHASONE 4 MG/ML VIAL ONE (07:31)
[2021-03-23] MEDS ORDERED: ROCURONIUM 50 MG/5 ML VIAL ONE ×2 (07:31→09:25)
[2021-03-23] MEDS ORDERED: LIDOCAINE-MPF 2% 5 ML VIAL ONE (07:31)
[2021-03-23] MEDS ORDERED: PROPOFOL 200 MG/20 ML VIAL IVP ONE (07:31)
[2021-03-23] MEDS ORDERED: ROPIVACAINE 0.5% PF 20 ML AMPULE ONE (07:31)
[2021-03-23] MEDS ORDERED: TRANEXAMIC ACID 1,000 MG/10 ML VIAL ONE ×2 (07:58→09:59)
[2021-03-23] MEDS ORDERED: LACTATED RINGERS 1,000 ML IV SCH (08:00)
[2021-03-23] MEDS ORDERED: HYDROGEN PEROXIDE 3% 473 ML BOTTLE TOP ONE (08:29)
[2021-03-23] MEDS ORDERED: VANCOMYCIN 1 GM VIAL MC ONE (08:29)
[2021-03-23] MEDS ORDERED: CELECOXIB 100 MG CAPSULE PO SCH (09:00)
--- NOTE | 2021-03-23 10:15 | OPERATIVE REPORT ---
Operative Report - General Procedure Date: 03/23/21 Planned Procedure: Left total hipReplacement Pre-Op Diagnosis: Osteoarthritis left hip Procedure Performed: Left total hip replacement: [employer] anthology size 6 standard offset femoral component, 50 mm R3 3 hole acetabular cup, dual mobility head and liner, two 6.5 mm acetabular screws, All components noncemented Post Op Diagnosis: Same as preoperative diagnosis - Procedure Note Primary Surgeon: Basil Huitron MD Secondary Surgeon: Remigio BYERS Anesthesia Provider: Francine Jeffery Anesthesia Technique: General ET tube, Regional block Estimated Blood Loss (mL): 100 Indications: This is a 86-year-old woman with bilateral hip osteoarthritis. She has had a previous right total hip arthroplasty several years ago with favorable outcome and has had gradual and increasing very symptomatic pain on the left side causing disability with weightbearing activities including activities of daily living, walking activities that she enjoys. Her hip motion was decreased and painful. Her x-ray showed marked narrowing of her left hip joint with osteophytes and some cyst consistent with osteoarthritis of the left hip.She had preoperative medical evaluation, attended joint camp and has signed informed consent with her son present for the latter. Findings: She had complete loss of articular cartilage to the femoral head and most of the acetabulum consistent with advanced osteoarthritis of the left hip. Complications: None - Other Other Information/Narrative: After satisfactory General anesthesia had been achieved, the patient was placed in a lateral decubitus position with the Left hip facing superiorly. She was secured in the lateral decubitus position using a pegboard with 2 post securing the torso and 2 posts securing the pelvis. The [facility] were prepped and draped in a sterile manner in the usual fashion. A timeout procedure was performed by the entire operating room team and all were in agreement. A longitudinal incision was made about the lateral Left hip beginning at the vastus lateralis ridge of the proximal femur and extending it proximally approximately 3 fingerbreadths above the trochanter. The subcutaneous tissue and fascia david were split in line with the incision. The anterior one third of the gluteus medius was Released at the Trochanteric junction. The gluteus medius was retracted medially. The hip capsule was exposed and was split in a T-shaped fashion. Part of the anterior hip capsule was excised. The femoral head was dislocated with flexion, adduction and external rotation. An osteotomy was done to the femoral neck using a osteotomy guide. Retractors were placed behind the femoral neck to protect the soft tissues from the oscillating saw. The proximal femur was retracted. 2 acetabular retractors were placed one anteriorly directly against bone to reduce any soft tissue impingement to femoral nerve. The second retractor was placed more posteriorly directly against bone and preventing any impingement against sciatic nerve. The acetabulum was prepared with a large curette. Medialization of the acetabulum was performed with a small acetabular reamer and then widening was done up to a 49 mm reamer the final reamers were placed in approximately 20 degrees anteversion and 45 degrees of abduction. A trial acetabular component was inserted, 49 mm and this fit well. A permanent 50 mm R3 acetabular 3-hole component was then impacted in 40 degrees of abduction and approximately 20 degrees of anteversion. This had good fixation to push pull and rotation. Two 6.5 mm acetabular screw was inserted. The stability of the acetabular cup was very good. A trial acetabular liner was inserted into the cup, Dual mobility. The femoral canal was opened with a box osteotome, starting reamer and then a short broach. Broaching was carried out to a #6. Calcar reaming was performed. Good fit and stability to the #6 stem was achieved. Trial reduction was performed. Hip motion was very good and the hip was stable to dislocation maneuvers. The trial components were removed. A permanent Dual mobility a cetabular liner was impacted into the acetabular cup. The 6. Anthology femoral stem was impacted and fully seated. The femoral head was impacted on the femoral trunnion. There was good stability to push pull and rotation. A Dual mobility femoral head was impacted on the trunnion. The hip was reduced, had good leg length tension and good stability with dislocation maneuvers. 3-minute lavage with dilute Betadine was performed. The hip abductors were repaired at the Trochanteric junction with Fiber tack suture with 4 needles. The fascia david was closed with #1 Strata fix. The subcutaneous tissue was closed with 2-0 Strata fix. The skin was closed with a 3-0 Monocryl subcuticular closure and Dermabond. He tolerated the procedure well. A physician engineer assistant was utilized during the procedure to provide retraction and protection of neurovascular structures as well as to facilitate dislocation and reduction of the hip joint.She received 2 g of Ancef intravenously and a gram of tranexamic acidIntravenously.
[2021-03-23] MEDS ORDERED: SUGAMMADEX 200 MG/2 ML VIAL IVP ONE (10:21)
[2021-03-23] MEDS: fentaNYL 100 MCG/2 ML VIAL IVP PRN ×3 (11:02→11:21)
--- NOTE | 2021-03-23 11:02 | ANESTHESIA POST OP EVALUATION ---
Anesthesia Post Eval - Post Anesthesia Eval Vitals: Last Vital Signs Temp 36.3 C L 03/23/21 10:56 Pulse 74 03/23/21 10:56 Resp 16 03/23/21 10:56 BP 158/77 H 03/23/21 10:56 Pulse Ox 100 03/23/21 10:56 CV Function Including HR & BP: Stable Pain Control: Satisfactory Nausea & Vomiting: Negative Mental Status: Baseline Respiratory Status: Airway Patent Hydration Status: Satisfactory Anesthesia Complications: None
[2021-03-23] MEDS ORDERED: fentaNYL 100 MCG/2 ML VIAL ONE (11:05)
[2021-03-23] MEDS: SODIUM CHLORIDE FLUSH 0.9% 10 ML SYRINGE IVP SCH ×2 (12:24→16:03)
[2021-03-23] MEDS: ACETAMINOPHEN 500 MG TABLET PO SCH ×2 (12:24→17:47)
[2021-03-23] MEDS: ethyl alcohoL 62% SWAB AMPULE NAS SCH ×2 (12:25→21:01)
[2021-03-23] MEDS: ASPIRIN EC 81 MG TABLET PO SCH ×2 (12:25→21:00)
[2021-03-23] MEDS ORDERED: NS W/20 MEQ KCL 1,000 ML IV SCH (12:30)
--- NOTE | 2021-03-23 14:43 | XRAY Report ---
PROCEDURE: Pelvis 1 View INDICATIONS: POST TOTAL HIP ARHTROPLASTY TECHNIQUE: 1 view(s) of the pelvis acquired. COMPARISON: Plain films dated 11/23/2020 FINDINGS: Bones: No fractures or dislocations. No suspicious bony lesions. Bilateral hip arthroplasty has be en performed, new on the left. Soft tissues: Visualized bowel gas pattern is normal. No suspicious soft tissue calcifications. IMPRESSION: Expected appearance of bilateral hip arthroplasties. Reviewed by: Miels Thomson MD on 03/23/2021 2:42 PM PDT Approved by: Miles Thomson MD on 03/23/2021 2:42 PM PDT Station ID: [id number]
--- NOTE | 2021-03-23 15:13 | CONSULTATION NOTE ---
Referring Provider Name of Referring Provider:: Dr. Gaming Consult Date: 03/23/21 Chief Complaint - Chief Complaint Chief Complaint: pain when she move her left leg History of Present Illness - Admitted From Admitted From:: medical floor - History Obtained From Records Reviewed: [facility] History obtained from: pt Exam Limitations: non - History of Present Illness HPI Comment/Other: This is a 22-po[age]ig female with a past medical history significant for Hypertension, hyperlipidemia,Cardiac murmur, osteoarthritis, hypothyroidism, chronic uterine prolapse, who present medical floor after s/p left Total hip replacement. Medical team was consulted for medical management. Patient report she just finished her left total hip replacement. She Report she has pain when she tried to move her left leg at her surgery site. She denies chest pain, Shortness of breathing. she report she had chronic uterine prolapse for about 6 yrs. she use heavy pants. she denies dysuria, vaginal discomfort or pain, and she is asymptomatic. History - Past Medical History Cardiovascular: reports: Hypertension, High cholesterol, Murmur (moderate , see echo) Respiratory: reports: None Endocrine/Autoimmune: reports: HyPOthyroidism GI: reports: None : reports: None HEENT: reports: Chronic vision loss Psych: reports: None Musculoskeletal: reports: Osteoarthritis Derm: reports: None MRSA Hx?: No - Past Surgical History General: reports: Cholecystectomy, Colonoscopy Ortho: reports: Hip replacement Neuro: reports: Other HEENT: reports: Cataracts, Tonsil/Adenoidectomy Meds/Allgy - Home Medications Home Medications: Ambulatory Orders Medication Instructions Recorded Confirmed Atorvastatin Calcium 20 mg PO QPM 06/13/19 03/23/21 Levothyroxine [Synthroid] 75 mcg PO QDAC 06/13/19 03/23/21 Calcium Carbonate/Vitamin D3 3 each PO DAILY 03/16/21 03/23/21 [Calcium 500 mg-Vit D3 600 Unit] Gabapentin [Neurontin] 100 mg PO QPM 03/16/21 03/23/21 Lisinopril/Hydrochlorothiazide 1 each PO DAILY 03/16/21 03/23/21 [Zestoretic 20-12.5 mg Tablet] Meloxicam [Mobic] 1 tablet PO DAILY 03/16/21 03/23/21 Multivit-Min/Iron/Folic/Vqa345 1 each PO DAILY 03/16/21 03/23/21 [Hair, Skin and Nails Tablet] Multivitamin/Iron/Folic Acid 1 each PO DAILY 03/16/21 03/23/21 [Centrum Adults Tablet] Vit A/Vit C/Vit E/Zinc/Copper 1 each PO BID 03/16/21 03/23/21 [Preservision Areds Softgel] amLODIPine [Norvasc] 5 mg PO DAILY 03/16/21 03/23/21 - Allergies Allergies/Adverse Reactions: Allergies Allergy/AdvReac Type Severity Reaction Status Date / Time Sulfa (Sulfonamide Allergy Mild Emesis Verified 06/13/19 13:02 Antibiotics) Review of Systems - Constitutional Constitutional: denies: Fever, Chills - Eyes Eyes: denies: Pain - Ears, Nose & Throat Ears, Nose & Throat: denies: Ear pain, Nosebleeds - Cardiovascular Cariovascular: denies: Chest pain, Exertional dyspnea, Decr. exercise tolerance - Respiratory Respiratory: denies: Cough, SOB at rest, SOB with exertion - Gastrointestinal Gastrointestinal: denies: Abdominal pain - Genitourinary Genitourinary: denies: Dysuria, Flank pain - Musculoskeletal Musculoskeletal: denies: Muscle pain - Neurological Neurological: denies: Focal weakness, Dizziness, Numbness, Seizures, Slurred speech - Psychiatric Psychiatric: denies: Depression Exam - Vital Signs Vital Signs: Vital Signs x48h Temp Pulse Pulse Resp BP BP Pulse Ox 03/23/21 15:00 36.5 C 90 16 137/62 H 99 03/23/21 14:50 36.5 C 84 16 152/55 H 100 03/23/21 14:00 36.5 C 81 16 156/51 H 100 03/23/21 13:45 35.6 C L 76 16 144/56 H 98 03/23/21 12:43 35.6 C L 77 16 138/62 H 100 03/23/21 12:35 35.6 C L 79 16 138/62 H 100 03/23/21 12:20 35.5 C L 54 L 16 143/54 H 100 03/23/21 12:05 35.5 C L 74 16 149/54 H 100 03/23/21 11:45 35.5 C L 79 17 151/53 H 100 03/23/21 11:42 35.5 C L 75 16 159/60 H 99 03/23/21 11:27 36.5 C 69 12 143/55 H 98 03/23/21 11:16 36.3 C L 71 12 152/59 H 100 03/23/21 11:06 36.3 C L 72 12 152/61 H 100 03/23/21 10:56 36.3 C L 74 16 158/77 H 100 03/23/21 10:45 36.3 C L 73 16 142/99 H 100 03/23/21 10:40 36.3 C L 73 22 152/85 H 100 03/23/21 10:35 36.3 C L 72 20 153/53 H 100 03/23/21 10:33 36.3 C L 75 18 153/53 H 100 - Physical Exam General Appearance: positive: No acute distress, Alert. negative: Lethargic Eyes Bilateral: positive: Normal inspection, PERRL ENT: positive: ENT inspection nml, No signs of dehydration. negative: Purulent nasal drainage Neck: positive: Nml inspection, Trachea midline. negative: Thyromegaly, Tracheal deviation Respiratory: positive: Chest non-tender, No respiratory distress. negative: Wheezes Cardiovascular: positive: Regular rate & rhythm, Systolic murmur. negative: Tachycardia, Bradycardia Peripheral Pulses: positive: 2+ Abdomen: positive: Non-tender, Nml bowel sounds, No distention. negative: Tenderness Rectal: positive: Other (with nurse, small partial of pt's uterine (likely) appear at vaginal) Back: positive: Nml inspection Skin: positive: Color nml, Warm, Dry. negative: Cyanosis Extremities: positive: Non-tender. negative: Calf tenderness Neurologic/Psychiatric: positive: Oriented x3, Sensation nml, Mood/affect nml. negative: Weakness, Sensory loss, Facial droop, Slurred/abnml speech, Depressed mood/affect Conclusion/Plan - Problem List (1) HTN (hypertension) Conclusion/Plan: Stable, resume home blood pressure medications, Continue vital signs monitor (2) S/P total left hip arthroplasty Conclusion/Plan: follow-up orthopedic surgeons, Pain control, DVT Prophylaxis per Surgeon on aspirin bid, continue on PT/OT (3) HLD (hyperlipidemia) Conclusion/Plan: Will resume home statin (4) Hypothyroidism Conclusion/Plan: We will check TSH, continue home Synthroid (5) Cardiac murmur Conclusion/Plan: Patient has a history of cardiac murmur, patient was cleared by tomb maker helper before surgery. Echo done at outpatient show Mild to moderate aortic stenosis. Patient denies chest pain or palpitation. patient is hemodynamic stable. We will continue vital signs monitor (6) Uterine prolapse Conclusion/Plan: Patient has hx of chronic uterine prolapse. Patient is asymptomatic. Patient may follow-up with her PCP To continue the management (7) Hyponatremia Conclusion/Plan: Na is 126 now. pt is alert and oriented. she denies headache, nausea, vomiting. she has no seizure. pt took HCTZ at home which is likely causing pt's hyponatremia. hold HCTZ. continue on IVF of NS, continue lab monitor. - Lab Results Fish Bones: 03/23/21 16:32 03/23/21 16:32
[2021-03-23] MEDS: ceFAZolin 2 GM in SODIUM CHLORIDE 0.9% 100ML 100 ML IV SCH (16:01)
[2021-03-23] MEDS: IBUPROFEN 400 MG TABLET PO PRN (16:01)
[2021-03-23 16:36] LABS: BASOPHILS % (AUTO) 0.2 %; EOSINOPHILS # (AUTO) 0.1 10^3/uL (0.0-0.7); EOSINOPHILS % (AUTO) 0.7 %; HCT - HEMATOCRIT 36.7 % (37.0-47.0); HGB - HEMOGLOBIN 11.9 g/dL (12.0-16.0); LYMPHOCYTES # (AUTO) 0.6 10^3/uL (1.5-3.5); LYMPHOCYTES % (AUTO) 4.1 %; MEAN CORPUSCULAR HGB CONC 32.4 g/dL (32.0-36.0); MEAN CORPUSCULAR VOLUME 98.7 fL (81.0-99.0); MEAN PLATELET VOLUME 8.9 fL (7.9-10.8); MONOCYTES # (AUTO) 0.3 10^3/uL (0.0-1.0); MONOCYTES % (AUTO) 2.1 %; NEUTROPHILS # (AUTO) 12.5 10^3/uL (1.5-6.6); NEUTROPHILS % (AUTO) 92.6 %; PLT - PLATELET COUNT 313 10^3/uL (130-450); RED BLOOD COUNT 3.72 10^6/uL (4.20-5.40); RED CELL DISTRIBUTION WIDTH 12.8 % (12.0-15.0); WHITE BLOOD COUNT 13.5 x10^3/uL (4.8-10.8)
[2021-03-23 16:59] LABS: CALCIUM 8.8 mg/dL (8.5-10.3); CREATININE 0.8 mg/dL (0.4-1.0); POTASSIUM 3.8 mmol/L (3.5-5.0)
[2021-03-23] MEDS: SODIUM CHLORIDE 0.9% 1,000 ML IV SCH (17:43)
[2021-03-23] MEDS ORDERED: GABAPENTIN 100 MG CAPSULE PO SCH (21:00)
[2021-03-23] MEDS ORDERED: ATORVASTATIN 10 MG TABLET PO SCH (21:00)
[2021-03-24] MEDS: ceFAZolin 2 GM in SODIUM CHLORIDE 0.9% 100ML 100 ML IV SCH (00:09)
[2021-03-24] MEDS: ACETAMINOPHEN 500 MG TABLET PO SCH ×3 (00:09→09:56)
[2021-03-24] MEDS: SODIUM CHLORIDE FLUSH 0.9% 10 ML SYRINGE IVP SCH ×2 (00:14→08:24)
[2021-03-24] MEDS: IBUPROFEN 400 MG TABLET PO PRN (03:44)
[2021-03-24] MEDS: SODIUM CHLORIDE 0.9% 1,000 ML IV SCH (03:48)
[2021-03-24 05:52] LABS: BASOPHILS % (AUTO) 0.2 %; EOSINOPHILS # (AUTO) 0.2 10^3/uL (0.0-0.7); EOSINOPHILS % (AUTO) 1.9 %; HCT - HEMATOCRIT 28.2 % (37.0-47.0); HGB - HEMOGLOBIN 9.7 g/dL (12.0-16.0); LYMPHOCYTES # (AUTO) 1.2 10^3/uL (1.5-3.5); LYMPHOCYTES % (AUTO) 10.5 %; MEAN CORPUSCULAR HEMOGLOBIN 33.1 pg (27.0-31.0); MEAN CORPUSCULAR HGB CONC 34.4 g/dL (32.0-36.0); MEAN CORPUSCULAR VOLUME 96.2 fL (81.0-99.0); MEAN PLATELET VOLUME 9.5 fL (7.9-10.8); MONOCYTES # (AUTO) 1.3 10^3/uL (0.0-1.0); MONOCYTES % (AUTO) 11.5 %; NEUTROPHILS # (AUTO) 8.7 10^3/uL (1.5-6.6); NEUTROPHILS % (AUTO) 75.5 %; PLT - PLATELET COUNT 274 10^3/uL (130-450); RED BLOOD COUNT 2.93 10^6/uL (4.20-5.40); RED CELL DISTRIBUTION WIDTH 12.8 % (12.0-15.0); WHITE BLOOD COUNT 11.5 x10^3/uL (4.8-10.8)
[2021-03-24 05:59] LABS: CALCIUM 8.5 mg/dL (8.5-10.3); CREATININE 0.7 mg/dL (0.4-1.0); POTASSIUM 4.1 mmol/L (3.5-5.0)
[2021-03-24] MEDS ORDERED: LEVOTHYROXINE 75 MCG TABLET PO SCH (07:00)
--- NOTE | 2021-03-24 07:49 | PROVIDER PROGRESS NOTE ---
Subjective - General Procedure Date: 03/23/21 Post Op Days: 1 Procedure Performed: Left SAIRA - Review of Systems General: negative: Fever, Chills Pulmonary: negative: Shortness of breath Cardiovascular: negative: Chest pain Gastrointestinal: negative: Nausea, Vomiting - Other Other Information/Narrative: Patient is an 86-year-old female who is postop day 1 left SAIRA performed by Dr Basil Huitron at [facility] on 03/23/2021. Patient's medical history includes aortic stenosis, hypertension, hypothyroidism, hyperlipidemia. Patient's pain is well controlled we are avoiding excess narcotics in this patient. Patient is WBAT she shows no signs or symptoms of infection. Comanaged by hospitalist Objective - Patient Data Reviewed Vital Signs: Yes Vital Signs: Vital Signs x48h Temp Pulse Resp BP Pulse Ox 03/24/21 05:00 36.9 C 65 18 129/43 L 98 03/24/21 00:15 36.9 C 68 16 131/51 H 97 Weight: Weight 03/22/21 03/23/21 03/24/21 23:59 23:59 23:59 Weight (kg) 74.6 kg Intake & Output: Intake and Output Totals x24h 03/22/21 03/23/21 03/24/21 23:59 23:59 23:59 Intake Total 1400 1700 Output Total 800 900 Balance 600 800 - Lab Results Lab Results: 03/24/21 05:19 03/24/21 05:19 Other Lab Results: Lab Results x24hrs 03/24/21 03/24/21 03/23/21 Range/Units 05:19 05:19 16:32 WBC 11.5 H (4.8-10.8) x10^3/uL RBC 2.93 L (4.20-5.40) 10^6/uL Hgb 9.7 L (12.0-16.0) g/dL Hct 28.2 L (37.0-47.0) % MCV 96.2 (81.0-99.0) fL MCH 33.1 H (27.0-31.0) pg MCHC 34.4 (32.0-36.0) g/dL RDW 12.8 (12.0-15.0) % Plt Count 274 (130-450) 10^3/uL MPV 9.5 (7.9-10.8) fL Neut # (Auto) 8.7 H (1.5-6.6) 10^3/uL Lymph # (Auto) 1.2 L (1.5-3.5) 10^3/uL Stanley # (Auto) 1.3 H (0.0-1.0) 10^3/uL Eos # (Auto) 0.2 (0.0-0.7) 10^3/uL Baso # (Auto) 0.0 (0.0-0.1) 10^3/uL Absolute Nucleated RBC 0.00 x10^3/uL Nucleated RBC % 0.0 /100WBC Sodium 135 (135-145) mmol/L Potassium 4.1 (3.5-5.0) mmol/L Chloride 104 (101-111) mmol/L Carbon Dioxide 22 (21-32) mmol/L Anion Gap 9.0 (6-13) BUN 20 (6-20) mg/dL Creatinine 0.7 (0.4-1.0) mg/dL Estimated GFR (MDRD) 80 L (>89) Glucose 119 H (70-100) mg/dL Calcium 8.5 (8.5-10.3) mg/dL TSH 1.35 (0.34-5.60) uIU/mL 03/23/21 03/23/21 Range/Units 16:32 16:32 WBC 13.5 H (4.8-10.8) x10^3/uL RBC 3.72 L (4.20-5.40) 10^6/uL Hgb 11.9 L (12.0-16.0) g/dL Hct 36.7 L (37.0-47.0) % MCV 98.7 (81.0-99.0) fL MCH 32.0 H (27.0-31.0) pg MCHC 32.4 (32.0-36.0) g/dL RDW 12.8 (12.0-15.0) % Plt Count 313 (130-450) 10^3/uL MPV 8.9 (7.9-10.8) fL Neut # (Auto) 12.5 H (1.5-6.6) 10^3/uL Lymph # (Auto) 0.6 L (1.5-3.5) 10^3/uL Stanley # (Auto) 0.3 (0.0-1.0) 10^3/uL Eos # (Auto) 0.1 (0.0-0.7) 10^3/uL Baso # (Auto) 0.0 (0.0-0.1) 10^3/uL Absolute Nucleated RBC 0.00 x10^3/uL Nucleated RBC % 0.0 /100WBC Sodium 126 L (135-145) mmol/L Potassium 3.8 (3.5-5.0) mmol/L Chloride 93 L (101-111) mmol/L Carbon Dioxide 22 (21-32) mmol/L Anion Gap 11.0 (6-13) BUN 21 H (6-20) mg/dL Creatinine 0.8 (0.4-1.0) mg/dL Estimated GFR (MDRD) 68 L (>89) Glucose 188 H (70-100) mg/dL Calcium 8.8 (8.5-10.3) mg/dL TSH (0.34-5.60) uIU/mL - Imaging Results Radiology Imaging: positive: EMP read indepedently (I have independently visualized pelvis x-ray postop shows existing right total hip knee of that the new left total hip has good anatomical alignment with no apparent hardware loosening.) - Current Medications Current Medications: Current Medications Generic Name Dose Route Start Last Admin Trade Name Freq PRN Reason Stop Dose Admin Acetaminophen 1,000 mg 03/23/21 12:00 03/24/21 06:36 Acetaminophen 500 Mg Tablet PO Not Given Q6HR HUNTER Alcohol 1 amp 03/23/21 12:00 03/23/21 21:01 Ethyl Alcohol 62% Swab Ampule SHANIQUE 1 amp BID HUNTER Administration Aspirin 81 mg 03/23/21 12:00 03/23/21 21:00 Aspirin Ec 81 Mg Tablet PO 81 mg BID HUNTER Administration Atorvastatin Calcium 20 mg 03/23/21 21:00 03/23/21 21:00 Atorvastatin 10 Mg Tablet PO 20 mg QPM HUNTER Administration Gabapentin 100 mg 03/23/21 21:00 03/23/21 20:59 Gabapentin 100 Mg Capsule PO 100 mg QPM HUNTER Administration Ibuprofen 400 mg 03/23/21 15:01 03/24/21 03:44 Ibuprofen 400 Mg Tablet PO 400 mg Q6HR PRN Administration PAIN Levothyroxine Sodium 75 mcg 03/24/21 07:00 03/24/21 06:40 Levothyroxine 75 Mcg Tablet PO 75 mcg QDAC HUNTER Administration Sodium Chloride 10 ml 03/23/21 09:00 03/24/21 00:14 Sodium Chloride Flush 0.9% 10 Ml Syringe IVP 10 ml 0100,0900,1700 HUNTER Administration - Physical Exam Wound/Incisions: positive: Dressing dry and intact General Appearance: positive: No acute distress Respiratory: positive: No respiratory distress Skin: positive: Color nml, No rash, Warm, Dry Neurologic/Psychiatric: positive: Oriented x3 (Patient has some left hip pain) ABX Reporting Has patient been on IV antibiotics over the past 48 hours?: Yes Impression/Plan - Problem List Problem List: Patient is an 86-year-old female with a history including aortic stenosis, h ypertension, hypothyroidism hyperlipidemia who is postop day 1 left SAIRA performed by Dr Basil Huitron at [facility] on 03/23/2021. Patient is weightbearing as tolerated, her pain is well controlled she shows no signs or symptoms of infection she is receiving PT OT and is on track to be discharged later today after more rounds of PT OT. We are avoiding excessive narcotics given her age. Patient is comanaged by the hospitalist she is cleared to be discharged from an orthopedic surgical standpoint
[2021-03-24 08:02] LABS: ABSOLUTE RETICS # AUTO 0.04 10^6/uL (0.020-0.110); RED BLOOD COUNT 2.97 10^6/uL (4.20-5.40); RETICULOCYTE COUNT % (AUTO) 1.34 % (0.5-2.3)
--- NOTE | 2021-03-24 08:02 | Discharge Plan ---
Discharge Plan Problem Reviewed?: Yes Disposition: Home, Self Care Condition: Good Diet: Regular Activity Restrictions: Wt Bearing as Tolerated Shower Restrictions: Yes (Uses shower chair to prevent falls) Driving Restrictions: Yes (Do not operate a motor vehicle until cleared by surgeon) Assistance Devices: Wheelchair Weight Bearing: Partial Weight Additional Instructions or Follow Up instructions: You have had a left total hip replacement he had a previous right total hip replacement in the past. You have limb positioning precautions for the initial 6 weeks do not cross your left operative leg past midline or over your right leg and to not excessively bend at the waist or have your knees higher than your h ips when sitting. Do not sleep on the affected side. You have your prescription medication at home you will be taking scheduled Tramadol 50 mg every 6 hours starting at 6 AM four times a day. Take scheduled Tylenol With 1000 mg at noon every 6 hours starting at 9 AM for a total of 3 times a day.Take 1 tablet 5 mg oxycodone for breakthrough pain greater than 8 out of 10. We recommend you take an oxycodone approximately an hour before bedtime to promote sleep. You be taking 81 mg of aspirin twice a day once at 6 AM 1 at 6 PM for a total of 6 weeks for blood clot prevention. Your follow-up appointment is on 03/28/2021 at 11:15 AM at the [facility] No Smoking: If you smoke, Please STOP! Call for help. Follow-up with: Ben Delgado MD [Primary Care Provider] -
[2021-03-24] MEDS: ethyl alcohoL 62% SWAB AMPULE NAS SCH (08:23)
[2021-03-24] MEDS: ASPIRIN EC 81 MG TABLET PO SCH (08:23)
[2021-03-24 08:28] LABS: % IRON SATURATION 9 % (20-50); IRON 28 ug/dL (28-170); TOTAL IRON BINDING CAPACITY 295 ug/dL (250-450); TRANSFERRIN 211 mg/dL (192-382)
[2021-03-24 08:31] LABS: FERRITIN 63.4 ng/mL (11.0-306.8)
[2021-03-24] MEDS ORDERED: CHOLECALCIFEROL 25 MCG TABLET PO SCH (09:00)
[2021-03-24] MEDS ORDERED: CALCIUM CARB (OYSTER SHELL) 500 MG TABLET PO SCH (09:00)
[2021-03-24] MEDS ORDERED: FERROUS GLUCONATE 324 MG TABLET PO SCH (09:00)
[2021-03-24 13:44] VITALS: BP 127/48
== END 2021-03-24 12:23 | disposition home or self-care (01) ==
LOC: SDS 06:06 → MS2 11:26 → SDS 03-24 12:23
PROVIDERS: ATTEND Orthopaedic Surgery
DX: M16.12 Unilateral primary osteoarthritis, left hip (principal); I35.0 Nonrheumatic aortic (valve) stenosis; E66.9 Obesity, unspecified; Z68.30 Body mass index [BMI] 30.0-30.9, adult; I10 Essential (primary) hypertension; E78.5 Hyperlipidemia, unspecified; E03.9 Hypothyroidism, unspecified; N81.4 Uterovaginal prolapse, unspecified; E87.1 Hypo-osmolality and hyponatremia
CPT/HCPCS: 27130; 36415; 72170; 80048; 84443; 85025; 97162; A9270; C1713; J0690; J3370; J7120; 82607; 82728; 83540; 83615; 84466; 85045

== ENCOUNTER 2021-06-16 08:47 | Outpatient (CLI) | payer MEDICARE, OTHER ==
--- NOTE | 2021-06-16 11:05 | XRAY Report ---
PROCEDURE: Hip 2 View LT INDICATIONS: LEFT SAIRA DOS:03.23.21 TECHNIQUE: AP view of the pelvis and crosstable lateral view of the left hip obtained. COMPARISON: Pelvis radiographs 03/23/2021. Left hip radiographs 11/23/2020. FINDINGS: Bones: Postsurgical changes again seen from bilateral total hip arthroplasties with hardware componen ts in stable positions. No acute osseous abnormality is seen. Degenerative changes are seen in the in cluded lower lumbar spine and the sacroiliac joints. Soft tissues: Soft tissue postoperative findings surrounding the left resolved. No suspicious soft t issue calcifications or masses. A catheter is again seen projecting over the pelvis. IMPRESSION: Stable bilateral total hip arthroplasties. Reviewed by: Omar Harp MD on 06/16/2021 11:04 AM PST Approved by: Oamr Harp MD on 06/16/2021 11:04 AM PST Station ID: [id number]
== END 2021-06-16 08:48 | disposition home or self-care (01) ==
LOC: DI.WOS 08:47
PROVIDERS: ATTEND Orthopaedic Surgery
DX: Z96.643 Presence of artificial hip joint, bilateral (principal)

== ENCOUNTER 2022-02-06 08:00 | Outpatient (CLI) | payer MEDICARE, OTHER ==
--- NOTE | 2022-02-06 11:49 | XRAY Report ---
PROCEDURE: Hip 2 View LT INDICATIONS: HIP ARTHROPLASTY TECHNIQUE: 2 views of the hip were acquired. COMPARISON: 06/16/2021 FINDINGS: Bones: Bilateral total hip arthroplasty noted in place. No evidence of hardware failure or loosening. No fracture. Soft tissues: Ventriculoperitoneal catheter in appropriate position of the pelvis. Atherosclerotic va scular calcification noted in the femoral arterial vasculature IMPRESSION: Stable bilateral total hip arthroplasty without evidence of hardware failure or loosening Reviewed by: Robbie Bhakta MD on 02/06/2022 10:47 AM PARK Approved by: Robbie Bhakta MD on 02/06/2022 10:47 AM PARK Station ID: [id number]
== END 2022-02-06 23:59 | disposition home or self-care (01) ==
LOC: DI.WOS 08:00
PROVIDERS: ATTEND Physician Assistant
DX: Z96.643 Presence of artificial hip joint, bilateral (principal)

== ENCOUNTER 2022-03-23 10:24 | Outpatient (CLI) | payer MEDICARE, OTHER ==
[2022-03-23 14:41] LABS: BASOPHILS # (AUTO) 0.1 10^3/uL (0.0-0.1); BASOPHILS % (AUTO) 0.9 %; EOSINOPHILS # (AUTO) 0.2 10^3/uL (0.0-0.7); EOSINOPHILS % (AUTO) 3.1 %; HCT - HEMATOCRIT 41.8 % (37.0-47.0); LYMPHOCYTES # (AUTO) 2.3 10^3/uL (1.5-3.5); LYMPHOCYTES % (AUTO) 30.7 %; MEAN CORPUSCULAR HGB CONC 31.1 g/dL (32.0-36.0); MEAN CORPUSCULAR VOLUME 99.5 fL (81.0-99.0); MEAN PLATELET VOLUME 10.3 fL (7.9-10.8); MONOCYTES # (AUTO) 0.6 10^3/uL (0.0-1.0); MONOCYTES % (AUTO) 8.4 %; NEUTROPHILS # (AUTO) 4.3 10^3/uL (1.5-6.6); NEUTROPHILS % (AUTO) 56.6 %; PLT - PLATELET COUNT 388 10^3/uL (130-450); RED CELL DISTRIBUTION WIDTH 14.1 % (12.0-15.0); WHITE BLOOD COUNT 7.6 x10^3/uL (4.8-10.8)
[2022-03-23 15:30] LABS: ALBUMIN/GLOBULIN RATIO 1.1 (1.0-2.2); ALKALINE PHOSPHATASE 65 IU/L (42-121); ALT ALANINE AMINOTRANSFERASE 14 IU/L (10-60); AST ASPARTATE AMINOTRANSFERASE 23 IU/L (10-42); BILIRUBIN,TOTAL 0.9 mg/dL (0.2-1.0); BUN - BLOOD UREA NITROGEN 13 mg/dL (6-20); CARBON DIOXIDE - CO2 24 mmol/L (21-32); CHLORIDE 103 mmol/L (101-111); CHOL/HDL RATIO 4.1 (<4.4); CHOLESTEROL 265 mg/dL; CREATININE 0.7 mg/dL (0.4-1.0); GFR - MDRD 79 (>89); GLUCOSE 91 mg/dL (70-100); HDL CHOLESTEROL 64 mg/dL; LDL CHOLESTEROL,CALCULATED 178 mg/dL; LDL/HDL RATIO 2.8 (<4.4); POTASSIUM 4.2 mmol/L (3.5-5.0); SODIUM 137 mmol/L (135-145); TOTAL PROTEIN 7.6 g/dL (6.7-8.2); TRIGLYCERIDES 115 mg/dL; VLDL CHOLESTEROL 23 mg/dL
[2022-03-23 15:39] LABS: THYROID STIMULATING HORMONE 3.66 uIU/mL (0.34-5.60)
== END 2022-03-23 10:25 | disposition home or self-care (01) ==
LOC: LAB.S 10:24
PROVIDERS: ATTEND Registered Nurse
DX: I10 Essential (primary) hypertension (principal); E78.5 Hyperlipidemia, unspecified; E03.9 Hypothyroidism, unspecified
CPT/HCPCS: 36415; 80053; 80061; 83721; 84443; 85025

== ENCOUNTER 2022-04-27 13:29 | Outpatient (CLI) | payer MEDICARE, OTHER | END 2022-04-27 23:59 | disposition critical access hospital (66) | LOC: EMS 13:29 | DX: R42 Dizziness and giddiness (principal) | CPT/HCPCS: A0425; A0429 ==

== ENCOUNTER 2022-04-27 13:56 | Emergency (ER) | payer MEDICARE, OTHER ==
--- NOTE | 2022-04-27 14:15 | ED Physician Documentation ---
History of Present Illness - Stated complaint Stated Complaint: DIZZY - Chief complaint Chief Complaint: Neuro - Additonal information Additional information: 87-year-old female is brought to the emergency department for evaluation of feeling lightheaded and as though she cannot walk. She resides at [facility] and was standing in the lobby speaking to the warehouse receiving clerk when she began to suddenly feel as though she would faint but was hesitant to walk as she felt off balance. She was assisted to the ground and EMS was summoned. Her blood sugar for EMS was 165. She did not have any focal neurodeficits. 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 She denies any known history of stroke or coronary artery disease. Does have a history of hypertension for which she takes routine blood pressure medications. She is not anticoagulated. At this time she is denying any chest pain headache or diplopia. She feels as though she would not be able to walk if she was asked to stand. No history of similar in the past. History obtained from patient Review of Systems Constitutional: denies: Fever, Chills Eyes: reports: Reviewed and negative Ears: reports: Reviewed and negative Nose: reports: Reviewed and negative Cardiac: denies: Chest pain / pressure, Palpitations Respiratory: denies: Dyspnea, Cough GI: denies: Nausea, Vomiting Skin: reports: Reviewed and negative Musculoskeletal: reports: Reviewed and negative Neurologic: reports: Near syncope. denies: Generalized weakness, Difficulty speaking PD PAST MEDICAL HISTORY - Past Medical History Cardiovascular: Hypertension, High cholesterol, Murmur Respiratory: None Endocrine/Autoimmune: HyPOthyroidism GI: None : None HEENT: Chronic vision loss Psych: None Musculoskeletal: Osteoarthritis Derm: None - Past Surgical History General: Cholecystectomy, Colonoscopy Ortho: Hip replacement Neuro: Other HEENT: Cataracts, Tonsil/Adenoidectomy - Present Medications Home Medications: Ambulatory Orders Medication Instructions Recorded Confirmed Atorvastatin Calcium 20 mg PO QPM 06/13/19 03/23/21 Levothyroxine [Synthroid] 75 mcg PO QDAC 06/13/19 03/23/21 Calcium Carbonate/Vitamin D3 3 each PO DAILY 03/16/21 03/23/21 [Calcium 500 mg-Vit D3 600 Unit] Gabapentin [Neurontin] 100 mg PO QPM 03/16/21 03/23/21 Lisinopril/Hydrochlorothiazide 1 each PO DAILY 03/16/21 03/23/21 [Zestoretic 20-12.5 mg Tablet] Meloxicam [Mobic] 1 tablet PO DAILY 03/16/21 03/23/21 Multivit-Min/Iron/Folic/Ylj049 1 each PO DAILY 03/16/21 03/23/21 [Hair, Skin and Nails Tablet] Multivitamin/Iron/Folic Acid 1 each PO DAILY 03/16/21 03/23/21 [Centrum Adults Tablet] Vit A/Vit C/Vit E/Zinc/Copper 1 each PO BID 03/16/21 03/23/21 [Preservision Areds Softgel] amLODIPine [Norvasc] 5 mg PO DAILY 03/16/21 03/23/21 - Allergies Allergies/Adverse Reactions: Allergies Allergy/AdvReac Type Severity Reaction Status Date / Time Sulfa (Sulfonamide Allergy Mild Emesis Verified 04/27/22 14:12 Antibiotics) - Social History Smoking Status: Never smoker PD ED PE EXPANDED - General General: Alert, No acute distress, Well developed/nourished, Other (Noted alopecia) - Cardiac Cardiac: Regular Rate, Radial strong equal, Pedal strong equal, Cap refill < 2 sec. No: Murmur Present - Respiratory Respiratory: Clear to ausultation jojo. No: Distress, Labored - Abdomen Abdomen: Normal Bowel sounds. No: Tender to palpation - Derm Derm: Normal color, Warm and dry, Other (Alopecia of the scalp). No: Rash - Neuro Neuro: Alert and Oriented X 3, CNII-XII intact, Normal finger nose, Normal speech - GCS Eye Opening: Spontaneous Motor: Obeys Commands Verbal: Oriented Total: 15 Results - Vitals Vitals: Vital Signs - 24 hr 04/27/22 04/27/22 04/27/22 14:03 14:31 16:12 Temperature 37.2 C Heart Rate 66 66 Heart Rate [ 65 Sitting] Heart Rate [ 69 Standing] Heart Rate [ 62 Supine] Respiratory 14 17 Rate Blood Pressure 179/56 H 177/53 H Blood Pressure 155/63 H [Sitting] Blood Pressure 172/60 H [Standing] Blood Pressure 141/59 H [Supine] O2 Saturation 99 100 04/27/22 04/27/22 16:30 18:12 Temperature Heart Rate 63 65 Heart Rate [ Sitting] Heart Rate [ Standing] Heart Rate [ Supine] Respiratory 13 16 Rate Blood Pressure 127/52 L 156/74 H Blood Pressure [Sitting] Blood Pressure [Standing] Blood Pressure [Supine] O2 Saturation 100 98 Oxygen O2 Source Room air - EKG (time done) 1419 Rate: Rate (enter#) (63) Rhythm: NSR Intervals: RBBB QRS: LVH Compare to prior EKG: Unchanged from prior EKG Computer interpretation: Agree with computer - Labs Labs: Laboratory Tests 04/27/22 04/27/22 04/27/22 14:47 14:47 14:47 WBC 7.3 RBC 3.80 L Hgb 12.0 Hct 35.9 L MCV 94.5 MCH 31.6 H MCHC 33.4 RDW 13.2 Plt Count 320 MPV 8.9 Neut # (Auto) 4.3 Lymph # (Auto) 2.1 [place] # (Auto) 0.7 Eos # (Auto) 0.2 Baso # (Auto) 0.1 Absolute Nucleated RBC 0.00 Nucleated RBC % 0.0 Sodium 131 L Potassium 3.9 Chloride 97 L Carbon Dioxide 26 Anion Gap 8.0 BUN 19 Creatinine 0.9 Estimated GFR (MDRD) 59 L Glucose 99 Calcium 9.5 Total Bilirubin 0.5 AST 18 ALT 12 Alkaline Phosphatase 54 Troponin I High Sens 4.7 Total Protein 6.9 Albumin 3.6 Globulin 3.3 Albumin/Globulin Ratio 1.1 Lipase 45 TSH Free T4 04/27/22 04/27/22 14:47 18:13 WBC RBC Hgb Hct MCV MCH MCHC RDW Plt Count MPV Neut # (Auto) Lymph # (Auto) [place] # (Auto) Eos # (Auto) Baso # (Auto) Absolute Nucleated RBC Nucleated RBC % Sodium 131 L Potassium 3.7 Chloride 99 L Carbon Dioxide 23 Anion Gap 9.0 BUN 19 Creatinine 0.8 Estimated GFR (MDRD) 68 L Glucose 95 Calcium 9.3 Total Bilirubin AST ALT Alkaline Phosphatase Troponin I High Sens Total Protein Albumin Globulin Albumin/Globulin Ratio Lipase TSH 1.52 Free T4 1.21 - Rads (name of study) CT head angio Radiology: Final report received (Right parietal ventriculostomy shunt in the left lateral ventricle with subjectively larger ventricular caliber than expected given the underlying mild volume loss. Correlate for potential shunt malfunction. No acute finding otherwise. No hemodynamic least significant intracranial arterial stenos) angio neck Radiology: Final report received (No hemodynamically significant stenosis of the major cervical arterial circulation. Mild atherosclerotic narrowing of the left carotid bifurcation and left ICA origin.) PD MEDICAL DECISION MAKING - ED course Complexity details: reviewed results, re-evaluated patient, fanny zelayaadriana, d/w patient ED course: 87-year-old female presents to the emergency department for evaluation of feeling suddenly lightheaded and as though she could not walk. She does have a history of normal pressure hydrocephalus as well as a FRAME REPAIRER shunt in place for more than 10 years. The shunt was placed in [facility], [place]. On presentation to the emergency department she is alert well-appearing though aged. She had an initial NIHSS of 0. We did obtain a EKG that was nonischemic. Her troponin was negative indicating low likelihood for ACS. Her orthostatic blood pressures were negative. Given the cerebral history we did obtain a CT angiogram of both her head and neck. There were no findings of significant intracranial stenosis aneurysm or dilation. The CT of the head does make comment that there is more hydrocephalus or ventriculomegaly than expected given cerebral volume loss though the FRAME REPAIRER shunt appears well-seated. However patient is denying any headache vision changes nausea or vomiting. I did attempt to get an MRI of the brain however this could not be completed as we do not know if the patient has a controller or not and without this knowledge the MRI could not be completed. I have reevaluated the patient and seen her to be walking with minimal assistance using a walker and/or her cane. I asked the patient if I could contact her son to discuss this case with him but she declined as he is currently in [facility]. I have discussed the CT imaging findings with the patient and have made the recommendation for primary care to make referral for the patient to neurosurgery which I feel the patient has the appropriate cognitive ability to do and complete. We did discuss emergent return precautions for concerns of headache or un controlled vomiting or any focal neuro changes Departure - Departure Disposition: 01 Home, Self Care Clinical Impression: Light headed, History of ventriculoperitoneal shunting, Normal pressure hydrocephalus Condition: Stable Follow-Up: Jordana Rivero ARNP [Primary Care Provider] - Comments: Marcy you are seen today in the emergency department because while standing at your care facility you began to feel suddenly lightheaded and as though you could not walk. On presentation to the emergency department your neurological exam was normal. You reported to us a history of normal pressure hydrocephalus for which you have a FRAME REPAIRER shunt in place. Here in the emergency department we did do a CBC and electrolytes that showed no worrisome findings. We also did CT angiogram of the head and neck. There was no findings to suggest decreased blood flow through the arteries in your head or brain. We do see the FRAME REPAIRER shunt in place. The radiologist commented that there may be more hydrocephalus than expected given your age however you have no neurological findings to suggest this such as headache or uncontrolled vomiting. I do recommend that your primary care provider make a referral for you to neurosurgery for reevaluation of the shunt. If at any point you find that your symptoms are worsening you should return immediately to the emergency department. NIHSS - Time Time: 14:15 - Level of Consciousness Level of consciousness: (0) Alert, Keenly responsive LOC Questions: (0) Answers both Q's correct LOC Commands: (0) Performs both correctly - Gaze Best Gaze: (0) Normal - Visual Visual: (0) No loss - Facial Palsy Facial Palsy: (0) Normal, symmetrical movement - Motor Arms (both separate) Motor Arm (right): (0) No drift Motor Arm (left): (0) No drift - Motor Legs (both separate) Motor Leg (right): (0) No drift Motor Leg (left): (0) No drift - Limb Ataxia Limb Ataxia: (0) Absent - Sensory Sensory: (0) Normal - Best Language Best Language: (0) No aphasia - Dysarthria Dysarthria: (0) Normal - Extinction and Inattention (formally neg Extinction and inattention: (0) No abnormality - Total Score/Results Total Score/Result: 0
--- NOTE | 2022-04-27 14:31 | XRAY Report ---
PROCEDURE: Chest 1 View X-Ray INDICATIONS: Chest Pain TECHNIQUE: One view of the chest was acquired. COMPARISON: None. FINDINGS: Surgical changes and devices: Ventricular peritoneal shunt tubing in the right neck and right chest noted. Lungs and pleura: No pleural effusions or pneumothorax. Lungs are clear. Mediastinum: Mediastinal contours appear normal. Heart size is normal. Bones and chest wall: No suspicious bony lesions. Overlying soft tissues appear unremarkable. IMPRESSION: No acute cardiopulmonary process demonstrated radiographically. Reviewed by: Carlo Vitale MD on 04/27/2022 1:29 PM [facility] Approved by: Carlo Vitale MD on 04/27/2022 1:29 PM [facility] Station ID: [id number]
[2022-04-27] MEDS ORDERED: iohexoL-300 100 ML VIAL ONE (14:44)
[2022-04-27 14:57] LABS: BASOPHILS # (AUTO) 0.1 10^3/uL (0.0-0.1); BASOPHILS % (AUTO) 0.7 %; EOSINOPHILS # (AUTO) 0.2 10^3/uL (0.0-0.7); EOSINOPHILS % (AUTO) 2.1 %; HCT - HEMATOCRIT 35.9 % (37.0-47.0); LYMPHOCYTES # (AUTO) 2.1 10^3/uL (1.5-3.5); LYMPHOCYTES % (AUTO) 28.3 %; MEAN CORPUSCULAR HEMOGLOBIN 31.6 pg (27.0-31.0); MEAN CORPUSCULAR HGB CONC 33.4 g/dL (32.0-36.0); MEAN CORPUSCULAR VOLUME 94.5 fL (81.0-99.0); MEAN PLATELET VOLUME 8.9 fL (7.9-10.8); MONOCYTES # (AUTO) 0.7 10^3/uL (0.0-1.0); MONOCYTES % (AUTO) 9.2 %; NEUTROPHILS # (AUTO) 4.3 10^3/uL (1.5-6.6); NEUTROPHILS % (AUTO) 59.4 %; PLT - PLATELET COUNT 320 10^3/uL (130-450); RED CELL DISTRIBUTION WIDTH 13.2 % (12.0-15.0); WHITE BLOOD COUNT 7.3 x10^3/uL (4.8-10.8)
[2022-04-27 15:10] LABS: ALBUMIN 3.6 g/dL (3.2-5.5); ALBUMIN/GLOBULIN RATIO 1.1 (1.0-2.2); BILIRUBIN,TOTAL 0.5 mg/dL (0.2-1.0); CALCIUM 9.5 mg/dL (8.5-10.3); CREATININE 0.9 mg/dL (0.4-1.0); POTASSIUM 3.9 mmol/L (3.5-5.0); TOTAL PROTEIN 6.9 g/dL (6.7-8.2)
[2022-04-27] MEDS ORDERED: SODIUM CHLORIDE 0.9% 1,000 ML IV STA (15:15)
[2022-04-27 15:26] LABS: THYROID STIMULATING HORMONE 1.52 uIU/mL (0.34-5.60)
[2022-04-27 15:28] LABS: FREE T4 (FREE THYROXINE) 1.21 ng/dL (0.58-1.64)
--- NOTE | 2022-04-27 16:29 | CT Report ---
PROCEDURE: ANGIO NECK W INDICATIONS: near syncope; off balance CONTRAST: 80mL Omni 300 TECHNIQUE: After the administration of intravenous contrast, 1.5 mm axial sections acquired from the aortic arch to the [place] of [place]. Coronal 3-D maximum intensity projection (MIP) and/or volume rendering ref ormats were then performed. For radiation dose reduction, the following was used: automated exposur e control, adjustment of mA and/or kV according to patient size. COMPARISON: None. FINDINGS: Image quality: Excellent. Carotid system: The great vessels demonstrate a conventional anatomy as they arise from the aortic a rch. The origins of the common carotid arteries appear patent. The common carotid arteries demonstr ate normal calibers and courses. The bifurcation regions appear normal bilaterally. The internal ca rotid arteries demonstrate normal caliber and course. Posterior circulation: The origins of the vertebral arteries appear patent. The more superior porti ons of the vertebral arteries demonstrate normal course and caliber. They join to form a normal appe aring basilar artery. Soft tissues: Visualized neck soft tissues demonstrate no suspicious abnormalities. The thyroid is normal in size and there are no incidental findings. Bones: No suspicious bony lesions. Visualized cervical spine appears normally aligned. IMPRESSION: No hemodynamically significant stenosis of the major cervical arterial circulation circulation. Mild atherosclerotic narrowing of the left carotid bifurcation and left ICA origin. The estimate of stenosis included in the report of the imaging study was calculated using the NASCET method. Reviewed by: Carlo Vitale MD on 04/27/2022 3:28 PM [facility] Approved by: Carlo Vitale MD on 04/27/2022 3:28 PM [facility] Station ID: [id number]
--- NOTE | 2022-04-27 16:34 | CT Report ---
PROCEDURE: ANGIO HEAD W/WO INDICATIONS: off balance; unable to walk CONTRAST: 80mL Omni 300 TECHNIQUE: Precontrast 4.5 mm thick angled axial sections acquired from the foramen magnum to the vertex. Afte r the administration of intravenous contrast, 1 mm thick sections acquired through the [place] of [place] is. Postcontrast 4.5 mm thick sections then re-acquired from the foramen magnum to the vertex. 3-di mensional upkacmy-tzubanxgz-wvvidlnhbp (MIP) and/or volume rendering reformats were acquired of the c entral intracranial vasculature. For radiation dose reduction, the following was used: automated ex posure control, adjustment of mA and/or kV according to patient size. COMPARISON: None. FINDINGS: Image quality: Excellent. Anterior circulation: Intracranial internal carotid arteries are normal in size and flow. The flow within the paired anterior cerebral arteries is normal and symmetric. The flow within the middle cer ebral arteries is normal and symmetric. The anterior communicating artery is seen. No aneurysms are seen. Posterior circulation: Visualized portions of the vertebral arteries demonstrate normal caliber, and join to form a normal appearing basilar artery. Flow within the posterior cerebral arteries is norm al and symmetric. No aneurysms are seen. CSF spaces: Right parietal approach ventriculostomy catheter with distal tip just left of midline in the left lateral ventricle. Ventricular system appears disproportionately dilated relative to the deg ree of underlying volume loss. Mild prominence of the right greater than left temporal horns. Basilar cisterns are patent. No findings of ventricular entrapment. Brain: No periventricular edema. Mild global cerebral volume loss and moderate chronic microvascular ischemic changes. No acute intracranial hemorrhage. Senescent basal ganglia calcifications. Skull and face: Calvarium and facial bones appear intact, without suspicious lesions. Sinuses: Visualized sinuses and mastoids are clear. IMPRESSION: Right parietal ventriculostomy shunt in the left lateral ventricle with subjectively larger ventricul ar caliber than expected given the underlying mild volume loss. Correlate for potential shunt malfunc tion. Correlation with any prior outside studies would also be helpful. No acute finding otherwise. No hemodynamically significant intracranial arterial stenosis. Reviewed by: Carlo Vitale MD on 04/27/2022 3:33 PM [facility] Approved by: Carlo Vitale MD on 04/27/2022 3:33 PM [facility] Station ID: [id number]
[2022-04-27] MEDS ORDERED: iohexoL-300 100 ML VIAL IVP ONE (17:17)
[2022-04-27 18:28] LABS: CALCIUM 9.3 mg/dL (8.5-10.3); CREATININE 0.8 mg/dL (0.4-1.0); POTASSIUM 3.7 mmol/L (3.5-5.0)
[2022-04-27 20:10] VITALS: BP 152/56
== END 2022-04-27 20:26 | disposition home or self-care (01) ==
LOC: EDUNIT# → ED 13:56
DX: R42 Dizziness and giddiness (principal); G91.2 (Idiopathic) normal pressure hydrocephalus; Z96.89 Presence of other specified functional implants; E03.9 Hypothyroidism, unspecified
CPT/HCPCS: 36415; 70496; 70498; 71045; 80048; 80053; 83690; 84439; 84443; 84484; 85025; 93005; 99284; Q9967

== ENCOUNTER 2023-02-12 08:00 | Outpatient (CLI) | payer MEDICARE, OTHER ==
--- NOTE | 2023-02-12 13:29 | XRAY Report ---
PROCEDURE: Hip 2 View LT INDICATIONS: LEFT TOTAL HIP F/U TECHNIQUE: 2 views of the hip were acquired. COMPARISON: None. FINDINGS: Bones: No fractures or dislocations. No suspicious bony lesions. Expected postoperative appearanc e of bilateral hip arthroplasties. Soft tissues: No suspicious soft tissue calcifications or masses. Incompletely visualized peritone al shunt tubing projects over the pelvic inlet. Vascular calcifications. IMPRESSION: Expected postoperative appearance of bilateral hip arthroplasties. Reviewed by: Berny Pulido on 02/12/2023 1:28 PM PDT Approved by: Berny Pulido on 02/12/2023 1:28 PM PDT Station ID: [id number]
== END 2023-02-12 23:59 | disposition home or self-care (01) ==
LOC: DI.WOS 08:00
PROVIDERS: ATTEND Orthopaedic Surgery
DX: Z96.643 Presence of artificial hip joint, bilateral (principal)

== ENCOUNTER 2023-04-20 11:57 | Outpatient (CLI) | payer MEDICARE, OTHER ==
[2023-04-20 15:42] LABS: BASOPHILS # (AUTO) 0.1 10^3/uL (0.0-0.1); BASOPHILS % (AUTO) 0.9 %; EOSINOPHILS # (AUTO) 0.2 10^3/uL (0.0-0.7); EOSINOPHILS % (AUTO) 2.1 %; LYMPHOCYTES # (AUTO) 1.9 10^3/uL (1.5-3.5); LYMPHOCYTES % (AUTO) 27.8 %; MEAN CORPUSCULAR HEMOGLOBIN 31.9 pg (27.0-31.0); MEAN CORPUSCULAR HGB CONC 31.6 g/dL (32.0-36.0); MEAN CORPUSCULAR VOLUME 101.1 fL (81.0-99.0); MONOCYTES # (AUTO) 0.6 10^3/uL (0.0-1.0); NEUTROPHILS # (AUTO) 4.2 10^3/uL (1.5-6.6); NEUTROPHILS % (AUTO) 59.9 %; PLT - PLATELET COUNT 436 10^3/uL (130-450); RED BLOOD COUNT 3.76 10^6/uL (4.20-5.40); RED CELL DISTRIBUTION WIDTH 13.4 % (12.0-15.0)
[2023-04-20 15:59] LABS: ALBUMIN 4.2 g/dL (3.2-5.5); CHOL/HDL RATIO 2.5 (<4.4); CHOLESTEROL 173 mg/dL; HDL CHOLESTEROL 68 mg/dL; LDL CHOLESTEROL,CALCULATED 90 mg/dL; LDL/HDL RATIO 1.3 (<4.4); TRIGLYCERIDES 73 mg/dL (48-352); VLDL CHOLESTEROL 15 mg/dL
[2023-04-20 16:00] LABS: THYROID STIMULATING HORMONE 9.92 uIU/mL (0.34-5.60)
[2023-04-20 16:55] LABS: ALBUMIN/GLOBULIN RATIO 1.3 (1.0-2.2); ALKALINE PHOSPHATASE 65 IU/L (42-121); ALT ALANINE AMINOTRANSFERASE 12 IU/L (10-60); AST ASPARTATE AMINOTRANSFERASE 23 IU/L (10-42); BILIRUBIN,TOTAL 0.6 mg/dL (0.2-1.0); BUN - BLOOD UREA NITROGEN 12 mg/dL (6-20); CALCIUM 9.9 mg/dL (8.5-10.3); CARBON DIOXIDE - CO2 21 mmol/L (21-32); CHLORIDE 101 mmol/L (101-111); CREATININE 0.7 mg/dL (0.6-1.3); GFR - MDRD 79 (>89); GLUCOSE 90 mg/dL (74-104); POTASSIUM 4.4 mmol/L (3.5-4.5); SODIUM 133 mmol/L (135-145); TOTAL PROTEIN 7.5 g/dL (6.4-8.9)
== END 2023-04-20 11:58 | disposition home or self-care (01) ==
LOC: LAB.S 11:57
PROVIDERS: ATTEND Registered Nurse
DX: I10 Essential (primary) hypertension (principal); Z79.899 Other long term (current) drug therapy; E78.5 Hyperlipidemia, unspecified; E03.9 Hypothyroidism, unspecified
CPT/HCPCS: 36415; 80053; 80061; 83721; 84439; 84443; 85025